=== PATIENT | male | born 2005 | race African-American/Black ===

== ENCOUNTER 2024-04-10 07:33 | Emergency (ER) | payer SELFPAY ==
[~2024-04-10] VITALS: Ht 182.9 cm; Wt 66.0 kg
[2024-04-10 07:36] VITALS: O2SAT 97
[2024-04-10] MEDS: CEFTRIAXONE SODIUM 500MG VIAL IM ONE (08:11)
[2024-04-10] MEDS ORDERED: DOXY100T28 MT (08:23)
[2024-04-10 08:36] LABS: CLARITY URINE CLEAR (CLEAR); COLOR URINE YELLOW (YELLOW); GLUCOSE URINE NEGATIVE (NEGATIVE); KETONES URINE NEGATIVE (NEGATIVE); LEUKOCYTE ESTERASE URINE NEGATIVE (NEGATIVE); NITRITE URINE NEGATIVE (NEGATIVE); OCCULT BLOOD URINE NEGATIVE (NEGATIVE); PH URINE 5.5 (4.5-8.0); PROTEIN URINE TRACE (NEGATIVE); SPECIFIC GRAVITY URINE 1.024 (1.005-1.030)
[2024-04-10 08:45] VITALS: BP 12/78; PULSE 68; RESP 18; TEMP 98.1
[2024-04-10 08:48] LABS: BACTERIA URINE RARE; RBC URINE NONE SEEN /hpf (0-2); SQUAMOUS EPITHELIAL CELL URINE RARE /lpf (RARE/1+); YEAST URINE NONE SEEN
[2024-04-14 04:08] LABS: CHLAMYDIA TRACHOMATIS NAA Negative (Negative); NEISSERIA GONORRHOEAE NAA Negative (Negative)
== END 2024-04-10 08:46 | disposition home or self-care (01) ==
LOC: ER 07:33
DX: R36.9 Urethral discharge, unspecified (principal)
CPT/HCPCS: 99283; 87491; 87591; 81003; 96372; J0696

== ENCOUNTER 2024-11-11 11:40 | Emergency (ER) | payer MEDICAID ==
[~2024-11-11] VITALS: Ht 188 cm; Wt 77.0 kg
[~2024-11-11 11:40] MED LIST: DOXY100T28 MT
[2024-11-11 11:49] VITALS: BP 111/75; PULSE 62; RESP 16; TEMP 36.8; O2SAT 100
[2024-11-11] MEDS: CEFTRIAXONE SODIUM 500MG VIAL IM ONE (13:15)
[2024-11-11] MEDS ORDERED: DOXY100C5 MT (13:30)
[2024-11-11] MEDS ORDERED: VALA10002 MT (13:30)
== END 2024-11-11 14:39 | disposition home or self-care (01) ==
LOC: ER 11:40
DX: N48.5 Ulcer of penis (principal); Z20.2 Contact with and (suspected) exposure to infections with a predominantly sexual mode of transmission
CPT/HCPCS: 99283; J0696

== ENCOUNTER 2025-02-25 21:06 | Emergency (ER) | payer SELFPAY ==
[~2025-02-25] VITALS: Ht 185.4 cm; Wt 75.6 kg
[~2025-02-25 21:06] MED LIST changes: +DOXY100C5 MT; +VALA10002 MT
[2025-02-25 21:13] VITALS: O2SAT 100
[2025-02-26] MEDS ORDERED: VALA100044 MT (00:05)
[2025-02-26 00:25] VITALS: BP 120/83; PULSE 60; RESP 20; TEMP 36.6; O2SAT 100
== END 2025-02-26 00:32 | disposition home or self-care (01) ==
LOC: ER 21:06
DX: B00.9 Herpesviral infection, unspecified (principal); Z20.2 Contact with and (suspected) exposure to infections with a predominantly sexual mode of transmission
CPT/HCPCS: 99283